=== PATIENT | male | born 1950 | race Caucasian/White ===

== ENCOUNTER → 2018-01-18 | Outpatient (CLI) | payer BC ==
[~2018-01-18] MED LIST: ACTOS 15MG TAB15 MG PO; GLUCOPHAGE850 MG/TAB PO; HUMALOG MIX 75/10 ML SQ; INSLANT SQ; PRAVACHOL 40MG40 MG PO; ULTRAM 50MG TAB50 MG PO; ZOFRAN8 MG PO
== END ==
LOC: COL.RAD 01-14 08:15
DX: S32.492D Other specified fracture of left acetabulum, subsequent encounter for fracture with routine healing (principal); S72.092D Other fracture of head and neck of left femur, subsequent encounter for closed fracture with routine healing; R60.0 Localized edema; M89.58 Osteolysis, other site

== ENCOUNTER 2020-08-30 05:52 | Day surgery (SDC) | payer BC ==
[~2020-08-30] VITALS: Ht 167.6 cm; Wt 94.5 kg
[2020-08-30] VITALS (10 sets, daily range): BP systolic 134–180; BP diastolic 76–97; PULSE 73–91; TEMP 98.1
[~2020-08-30 05:52] MED LIST changes: +ACTOPLUS MET 851 TAB PO; +BASAGLAR K100 UNIT/1 SQ; -GLUCOPHAGE850 MG/TAB PO; -HUMALOG MIX 75/10 ML SQ; -INSLANT SQ; +NOVOLIN R100 U/ML SQ
[2020-08-30] MEDS ORDERED: IMDUR 30MG30 MG/TAB PO (06:09)
[2020-08-30] MEDS ORDERED: TOPROL XL 25MG25 MG PO (06:09)
[2020-08-30] MEDS ORDERED: ASPIRIN E.C. 8181 MG PO (06:10)
[2020-08-30 07:35] LABS: HEMOGLOBIN 12.1 g/dl (13.5-18.0); MEAN CELL VOLUME 88 fl (80.0-100.0); MEAN CORPUSCULAR HEMOGLOBIN 29 pg (27.0-31.0); MEAN CORPUSCULAR HGB CONC 33 g/dl (33.0-37.0); MEAN PLATELET VOLUME 10.4 fl (7.4-10.4); PLATELET COUNT 271 K/mm3 (130-400); RED BLOOD COUNT 4.18 M/mm3 (4.20-5.60); REDCELL DISTRIBUTION WIDTH-CV 15.7 % (11.5-14.5)
[2020-08-30 07:36] LABS: HEMATOCRIT 36.6 % (42.0-52.0)
[2020-08-30 07:40] LABS: CALCIUM 8.7 mg/dL (8.4-10.2); CREATININE, serum 0.84 (0.66-1.25); POTASSIUM 3.9 mmol/L (3.4-5.0)
[2020-08-30 07:51] LABS: INR 1.1 (0.8-3.0); PROTHROMBIN TIME 12.6 SECONDS (9.7-12.8)
[2020-08-30 07:53] LABS: PARTIAL THROMBOPLASTIN TIME 31.7 SECONDS (26.0-37.0)
--- NOTE | 2020-08-30 10:00 | NUR ---
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 TR band to rt wrist, cms intact. Pt updated on poc, call light in reach.
--- NOTE | 2020-08-30 11:25 | NUR ---
PT IS DOING WELL IN RECOVERY, NAUSEA ALMOST ALL GONE AFTER DRINKING APPLE JUICE. LUNCH IS ORDERED FOR PT. PUNCTURE SITE LOOKS GOOD UNDER TR BAND, NO BLEEDING OR HEMATOMA. WCTM.
--- NOTE | 2020-08-30 13:10 | NUR ---
Pt is ready for departure at this tie. TR band was deflated with no problem. Site dressed with bandaid, folded 2x2 and coban. cms remains intact. Pt verbalized understanding of dc and fu instructions. IV was dc'd with cath intact dressing was applied. Pt to exit via wheelchair.
== END 2020-08-30 14:05 | disposition home or self-care (01) ==
LOC: COL.CAR
PROVIDERS: Internal Medicine Cardiovascular Disease
DX: I25.10 Atherosclerotic heart disease of native coronary artery without angina pectoris (principal); E11.3293 Type 2 diabetes mellitus with mild nonproliferative diabetic retinopathy without macular edema, bilateral; E78.5 Hyperlipidemia, unspecified; E66.9 Obesity, unspecified; I10 Essential (primary) hypertension; E78.2 Mixed hyperlipidemia; M19.90 Unspecified osteoarthritis, unspecified site; Z90.89 Acquired absence of other organs; Z98.52 Vasectomy status; Z79.82 Long term (current) use of aspirin; Z79.4 Long term (current) use of insulin; Z68.34 Body mass index [BMI] 34.0-34.9, adult; Z87.891 Personal history of nicotine dependence; Z20.822 Contact with and (suspected) exposure to COVID-19; Z82.3 Family history of stroke; Z80.3 Family history of malignant neoplasm of breast; Z80.1 Family history of malignant neoplasm of trachea, bronchus and lung; Z83.3 Family history of diabetes mellitus
CPT/HCPCS: C1769; J1644; J2250; J2405; J3010; Q9967

== ENCOUNTER 2020-11-30 10:06 | Emergency (ER) | payer BC ==
[~2020-11-30] VITALS: Ht 167.6 cm; Wt 90.9 kg
[~2020-11-30 10:06] MED LIST changes: +ASPIRIN E.C. 8181 MG PO; +IMDUR 30MG30 MG/TAB PO; +TOPROL XL 25MG25 MG PO
[2020-11-30 10:24] LABS: BASO # 0.1 (0.0-0.2); BASO % 0.8 % (0.0-2.0); EOS # 0.3 (0.0-0.7); EOS % 3.6 % (0-4.0); GRAN % 55.8 % (42.2-75.2); HEMOGLOBIN 10.5 g/dl (13.5-18.0); LYMPH # 1.8 (1.2-3.4); LYMPH % 24.4 % (20.0-51.0); MEAN CELL VOLUME 78 fl (80.0-100.0); MEAN CORPUSCULAR HEMOGLOBIN 24 pg (27.0-31.0); MEAN CORPUSCULAR HGB CONC 31 g/dl (33.0-37.0); MEAN PLATELET VOLUME 9.6 fl (7.4-10.4); MONO # 1.1 (0.1-0.6); MONO % 15.1 % (1.7-9.3); PLATELET COUNT 391 K/mm3 (130-400); RED BLOOD COUNT 4.41 M/mm3 (4.20-5.60); REDCELL DISTRIBUTION WIDTH-CV 15.4 % (11.5-14.5)
[2020-11-30 10:25] LABS: HEMATOCRIT 34.2 % (42.0-52.0)
[2020-11-30 10:34] LABS: ALANINE AMINOTRANSFERASE 13 U/L (4-49); ALBUMIN 4.3 gm/dL (3.5-5.0); ALKALINE PHOSPHATASE 61 U/L (50-136); ANION GAP 7 mmol/L (7-16); AST,SGOT 26 U/L (15-37); BILIRUBIN,TOTAL 0.5 mg/dL (0.0-1.0); BLOOD UREA NITROGEN 15 mg/dL (9-20); CALCIUM 9.3 mg/dL (8.4-10.2); CARBON DIOXIDE 25 mmol/L (22-30); CHLORIDE 104 mmol/L (98-107); CREATININE, serum 0.88 (0.66-1.25); GLUCOSE 138 mg/dL (74-106); POTASSIUM 3.9 mmol/L (3.4-5.0); SODIUM 136 mmol/L (137-145); TOTAL PROTEIN 7.6 gm/dL (6.4-8.2)
[2020-11-30 10:47] LABS: TROPONIN-I < 0.012 ng/mL (0.000-0.035)
[2020-11-30] MEDS ORDERED: CARDIZEM120 MG PO (11:48)
[2020-11-30] MEDS ORDERED: COZAAR 50MG50 MG/TAB PO (11:48)
[2020-11-30 12:03] LABS: COLLECTION METHOD CLEAN CATCH
[2020-11-30 12:06] VITALS: BP 158/85; PULSE 73
[2020-11-30 12:10] LABS: MUCOUS Present /lpf; PH 5 (5-8); SQUAMOUS EPITHELIAL None Seen /hpf; URINE APPEARANCE Clear; URINE BACTERIA Rare /hpf; URINE BILIRUBIN Negative (NEGATIVE); URINE BLOOD Negative (NEGATIVE); URINE COLOR Yellow; URINE GLUCOSE Negative (NEGATIVE); URINE KETONE Negative (NEGATIVE); URINE LEUKOCYTE ESTERASE Negative (NEGATIVE); URINE NITRATE Negative (NEGATIVE); URINE PROTEIN(semi-quant) Negative (NEGATIVE); URINE RBC None Seen /hpf; URINE UROBILINOGEN Negative (NEGATIVE)
== END 2020-11-30 12:08 | disposition home or self-care (01) ==
LOC: COL.ER 10:06
PROVIDERS: Emergency Medicine; Nurse Practitioner Primary Care
DX: R42 Dizziness and giddiness (principal); I10 Essential (primary) hypertension; E11.9 Type 2 diabetes mellitus without complications; I25.10 Atherosclerotic heart disease of native coronary artery without angina pectoris; E78.5 Hyperlipidemia, unspecified; Z88.8 Allergy status to other drugs, medicaments and biological substances; Z95.9 Presence of cardiac and vascular implant and graft, unspecified; Z79.4 Long term (current) use of insulin; Z79.899 Other long term (current) drug therapy; Z79.82 Long term (current) use of aspirin

== ENCOUNTER 2021-03-29 12:25 | Emergency (ER) | payer BC ==
[~2021-03-29] VITALS: Ht 167.6 cm; Wt 91.8 kg
[~2021-03-29 12:25] MED LIST changes: +CARDIZEM120 MG PO; +COZAAR 50MG50 MG/TAB PO
[2021-03-29 12:33] VITALS: TEMP 97.9
[2021-03-29 12:54] LABS: BASO # 0.1 K/mm3 (0.0-0.2); BASO % 0.9 % (0.0-2.0); EOS # 0.1 K/mm3 (0.0-0.7); GRAN # 4.7 K/mm3 (1.4-6.5); GRAN % 59.2 % (42.2-75.2); HEMOGLOBIN 10.1 g/dl (13.5-18.0); LYMPH # 2.1 K/mm3 (1.2-3.4); LYMPH % 26.5 % (20.0-51.0); MEAN CELL VOLUME 76 fl (80.0-100.0); MEAN CORPUSCULAR HEMOGLOBIN 25 pg (27.0-31.0); MEAN CORPUSCULAR HGB CONC 32 g/dl (33.0-37.0); MEAN PLATELET VOLUME 9.9 fl (7.4-10.4); MONO % 12.1 % (1.7-9.3); PLATELET COUNT 324 K/mm3 (130-400); RED BLOOD COUNT 4.13 M/mm3 (4.20-5.60); REDCELL DISTRIBUTION WIDTH-CV 18.2 % (11.5-14.5)
[2021-03-29 12:56] LABS: HEMATOCRIT 31.4 % (42.0-52.0)
[2021-03-29 13:10] LABS: ALANINE AMINOTRANSFERASE 7 U/L (0-55); ALBUMIN 3.8 gm/dL (3.4-4.8); ALKALINE PHOSPHATASE 49 U/L (0-750); ANION GAP 10 mmol/L (7-16); AST,SGOT 17 U/L (5-34); BILIRUBIN,TOTAL 0.4 mg/dL (0.2-1.2); BLOOD UREA NITROGEN 13 mg/dL (8-26); CARBON DIOXIDE 23 mmol/L (23-31); CHLORIDE 105 mmol/L (98-107); CREATININE, serum 0.86 mg/dL (0.72-1.25); GLUCOSE 107 mg/dL (70-99); POTASSIUM 3.8 mmol/L (3.5-4.5); SODIUM 138 mmol/L (136-145); TOTAL PROTEIN 6.9 gm/dL (6.2-8.1)
[2021-03-29 13:20] LABS: TROPONIN-I < 0.010 ng/mL (0.00-0.033)
[2021-03-29 17:28] VITALS: BP 143/80; PULSE 92
== END 2021-03-29 17:32 | disposition home or self-care (01) ==
LOC: COL.ER 12:25
PROVIDERS: Emergency Medicine
DX: R07.89 Other chest pain (principal); R51.9 Headache, unspecified; R20.2 Paresthesia of skin; I25.10 Atherosclerotic heart disease of native coronary artery without angina pectoris; E11.9 Type 2 diabetes mellitus without complications; I10 Essential (primary) hypertension; E78.5 Hyperlipidemia, unspecified; I48.91 Unspecified atrial fibrillation; Z87.891 Personal history of nicotine dependence; Z79.84 Long term (current) use of oral hypoglycemic drugs; Z79.4 Long term (current) use of insulin; Z79.899 Other long term (current) drug therapy
CPT/HCPCS: Q9967